=== PATIENT | male | born 1975 | race Hispanic/Latino ===

== ENCOUNTER 2024-11-29 20:08 | Emergency (ER) | payer SELFPAY ==
[~2024-11-29 20:08] MED LIST: Iopamidol 300 61% 100 ML VIAL FS ONE
[2024-11-29] MEDS ORDERED: Ketorolac Tromethamine 30 MG (1 mL) VIAL ONE (20:51)
[2024-11-29] MEDS ORDERED: Ondansetron PF 4 MG/2 ML Vial ONE (20:51)
[2024-11-29 21:01] LABS: #Basophils Less than 0.03 10x3/uL (0.0-0.2); #Eosinophils Less than 0.03 10x3/uL (0.0-0.5); #Monocytes 0.59 10x3/uL (0.0-1.1); #Neutrophils 10.27 10x3/uL (1.5-8.4); %Basophils 0.2 % (0.0-2.0); %Eosinophils 0.1 % (0.0-6.0); %Lymphocytes 12.3 % (18.0-47.0); %Monocytes 4.7 % (0.0-10.0); %Neutrophils 82.5 % (40.0-75.0); Hematocrit 53.2 % (38.8-50.0); Hemoglobin 18.8 g/dL (13.5-17.5); Mean Corpuscular Hemoglobin 32.8 pg (27.0-33.0); Mean Corpuscular Volume 92.8 fL (81.2-95.1); Platelet Count 220 10x3/uL (150-450); Red Blood Cell (RBC) Count 5.73 10x6/uL (4.32-5.72); White Blood Cell (WBC) Count 12.45 10x3/uL (3.5-10.5)
[2024-11-29 21:09] LABS: ALT (SGPT) 46 U/L (Less than 45); AST (SGOT) 40 U/L (11-34); Albumin 4.6 g/dL (3.1-4.5); Alkaline Phosphatase 101 U/L (40-110); Anion Gap 11 mmol/L (10-20); BUN (Urea Nitrogen) 17 mg/dL (8.9-20.6); Bilirubin, Total 1.4 mg/dL (0.3-1.2); Calc. Creatinine Clearance 0 mL/min (70-130); Calcium 10.1 mg/dL (7.8-10.44); Carbon Dioxide 30 mmol/L (22-29); Chloride 105 mmol/L (98-107); Globulin 3.7 g/dL (2.4-3.5); Glucose 95 mg/dL (70-105); Lipase 16 U/L (8-78); Potassium 4.2 mmol/L (3.5-5.1); Sodium 142 mmol/L (136-145)
[2024-11-29 22:26] LABS: Glucose, Urine (Dipstick) Normal (Negative); Leukocyte Negative (Negative); Protein, Urine (Dipstick) Negative (Neg-Trace); Specific Gravity, Urine 1.010 (1.005-1.030)
[2024-11-29 22:33] LABS: Bacteria/HPF Rare-Few HPF (None Seen); CAUTI Indications for Culture Pelvic or flank pain; RBC/HPF 0-3 HPF (0-3); WBC/HPF 0-3 HPF (0-3)
[2024-11-29 22:34] LABS: Urine Culture Reflex No No
[2024-11-30] MEDS ORDERED: Ondansetron PF 4 MG/2 ML Vial ONE (00:29)
== END 2024-11-30 01:38 | disposition short-term general hospital (02) ==
LOC: CSHERS 20:08
DX: K56.609 Unspecified intestinal obstruction, unspecified as to partial versus complete obstruction (principal); R11.2 Nausea with vomiting, unspecified
CPT/HCPCS: 36415; 74177; 80053; 81001; 83605; 83690; 85025; 87040; 87086; 96361; 96374; 96375; 96376; J1885; J2270; J2405; Q9967